=== PATIENT | male | born 1990 | race Two or more races ===

== ENCOUNTER 2024-07-31 23:52 | Emergency (ER) | payer OTHER ==
[~2024-07-31] VITALS: Ht 188 cm; Wt 108.9 kg
[2024-08-01] MEDS ORDERED: LIDOCAINE HCL 1% 10ML VIAL ONE (12:16)
[2024-08-01] MEDS ORDERED: BACITRACIN-NEOMYCIN-POLYMYXIN 0.9 GM PACKET TOP ONE (13:04)
== END 2024-08-01 | disposition left against medical advice (07) ==
LOC: ER 23:54
DX: S01.422A Laceration with foreign body of left cheek and temporomandibular area, initial encounter (principal); Y08.89XA Assault by other specified means, initial encounter; Y93.89 Activity, other specified; Y92.481 Parking lot as the place of occurrence of the external cause

== ENCOUNTER 2024-08-01 11:08 | Emergency (ER) | payer OTHER ==
[~2024-08-01] VITALS: Ht 188 cm; Wt 93.0 kg
[2024-08-01] MEDS ORDERED: TETANUS & DIPHTHERIA TOX,ADULT 0.5 ML VIAL IM ONE (11:45)
[2024-08-01] MEDS ORDERED: TETANUS DIPHTHERIA TOX. ADSOR 5 ML VIAL IM ONE (11:53)
[2024-08-01] MEDS ORDERED: CEFTRIAXONE SODIUM 2,000 MG VIAL IV ONE (13:00)
[2024-08-01] MEDS ORDERED: CEFTRIAXONE SODIUM 2,000 MG VIAL ONE (13:03)
[2024-08-01] MEDS ORDERED: KETOROLAC TROMETHAMINE 60 MG VIAL IM ONE (13:35)
== END 2024-08-01 15:23 | disposition home or self-care (01) ==
LOC: ER 11:10
DX: S01.81XA Laceration without foreign body of other part of head, initial encounter (principal); Y04.0XXA Assault by unarmed brawl or fight, initial encounter; Y93.89 Activity, other specified; Y92.89 Other specified places as the place of occurrence of the external cause; Y99.8 Other external cause status
CPT/HCPCS: 12054; 70150; 90471; 90714; J1670